=== PATIENT | female | born 1980 | race Caucasian/White ===

== ENCOUNTER 2018-09-30 12:28 | Emergency (ER) | payer OTHER ==
--- NOTE | 2018-09-30 13:55 | ED Physician Documentation ---
History of Present Illness - Stated complaint Stated Complaint: R LEG PX - Chief complaint Chief Complaint: General - History obtained from History obtained from: Patient, Family - History of Present Illness Timing: How many days ago (2) Pain level max: 6 Pain level now: 5 - Additonal information Additional information: 38-year-old female presents to the emergency department with right lower leg, heel and foot pain. Ongoing for the past couple of days. She teaches ballet and tap dancing. She also did a "bar workout" a few days ago. Worse with movement, better with rest. Has never had similar symptoms. No leg swelling. No recent travel. Not on hormone replacement. Does not smoke. No trauma Review of Systems Constitutional: denies: Fever, Chills Respiratory: denies: Cough GI: denies: Vomiting, Diarrhea Skin: denies: Rash Musculoskeletal: denies: Neck pain, Back pain Neurologic: denies: Headache PD PAST MEDICAL HISTORY - Past Medical History Past Medical History: No Cardiovascular: None Respiratory: None Neuro: None Endocrine/Autoimmune: None GI: None INSTRUMENTS SALES REPRESENTATIVE: None : None HEENT: None Psych: None Musculoskeletal: None Derm: None - Past Surgical History Past Surgical History: No - Present Medications Home Medications: Ambulatory Orders Medication Instructions Recorded Confirmed Ibuprofen [Motrin] 800 mg PO Q8H PRN #30 tablet 09/30/18 - Allergies Allergies/Adverse Reactions: Allergies Allergy/AdvReac Type Severity Reaction Status Date / Time No Known Drug Allergies Allergy Verified 09/30/18 12:40 - Social History Does the pt smoke?: No Smoking Status: Never smoker Does the pt drink ETOH?: No Does the pt have substance abuse?: No - Immunizations Immunizations are current?: Yes - POLST Patient has POLST: No PD ED PE NORMAL - Vitals Vital signs reviewed: Yes - General General: Alert and oriented X 3, No acute distress - HEENT HEENT: Moist mucous membranes - Neck Neck: Supple, no meningeal sign - Derm Derm: Warm and dry - Extremities Extremities: Other (Right lower extremity - Tender to palpation over the calcaneus. Also tender over the insertion of the Achilles and of the calf along the Achilles tendon. No calf tenderness or cord. No foot tenderness.) - Neuro Neuro: Alert and oriented X 3 Results - Vitals Vitals: Vital Signs - 24 hr 09/30/18 09/30/18 12:36 15:12 Temperature 36.5 C Heart Rate 111 H 93 Respiratory 14 16 Rate Blood Pressure 149/115 H 149/100 H O2 Saturation 99 99 Oxygen O2 Source Room air - Rads (name of study) Right calcaneus x-ray Radiology: Prelim report reviewed, EMP read contemporaneously, See rad report (No acute osseous abnormality of the calcaneus. 2. Mild prominence of the plantar soft tissues, which is nonspecific but can be seen in association with p lantar fasciitis.) R foot xray Radiology: Prelim report reviewed, EMP read contemporaneously, See rad report (No acute osseous or articular abnormality. 2. Mild spurring of the first metatarsal head, which may indicate mild DJD at the first MTP joint. 3. Mild prominence of the plantar soft tissues of the hindfoot, which can be seen with plantar fascitis. ) PD MEDICAL DECISION MAKING - ED course Complexity details: reviewed results, re-evaluated patient, considered differential, d/w patient, d/w family ED course: 38-year-old female presents to the emergency department with what appears to be an Achilles tendinitis and possibly plantar fasciitis. Placed in a walking boot for comfort. We will follow-up closely with her doctor. She understands that the walking boot is to be short-term only. Will likely need physical therapy as well. Patient counseled regarding signs and symptoms for which I believe and urgent re-evaluation would be necessary. Patient with good understanding of and agreement to plan and is comfortable going home at this time This document was made in part using voice recognition software. While efforts are made to proofread this document, sound alike and grammatical errors may occur. Departure - Departure Disposition: 01 Home, Self Care Clinical Impression: Achilles tendinitis of right lower extremity, Plantar fasciitis of right foot Condition: Good Instructions: ED Plantar Fasciitis Follow-Up: Provider,Other [Primary Care Provider] - Within 1 week Prescriptions: Ibuprofen [Motrin] 800 mg PO Q8H PRN #30 tablet PRN Reason: PAIN &/OR FEVER Comments: Do not wear the boot for longer than week. Follow-up with your doctor for further care. This may take 3 to 6 months to fully heal. You will likely benefit from ice, low impact exercise, anti-inflammatory medications and possibly physical therapy. Discharge Date/Time: 09/30/18 15:15
--- NOTE | 2018-09-30 14:30 | XRAY Report ---
Reason: R calcaneus pain, no injury Procedure Date: 09/30/2018 Accession Number: [id number] / [id number] Procedure: XR - Calcaneus RT CPT Code: FULL RESULT: EXAM: RIGHT CALCANEUS RADIOGRAPHY EXAM DATE: 09/30/2018 02:21 PM. CLINICAL HISTORY: Right calcaneus pain, no injury. COMPARISON: None. TECHNIQUE: 2 views. FINDINGS: Bones: No acute fracture or osseous lesion. Joints: No dislocation or subluxation. Soft Tissues: Prominence of the soft tissues along the plantar aspect of the hindfoot. Preservation of the retrocalcaneal fat pad. IMPRESSION: 1. No acute osseous abnormality of the calcaneus. 2. Mild prominence of the plantar soft tissues, which is nonspecific but can be seen in association with plantar fasciitis. [facility]
--- NOTE | 2018-09-30 14:31 | XRAY Report ---
Reason: R foot pain, no injury Procedure Date: 09/30/2018 Accession Number: [id number] / [id number] Procedure: XR - Foot 3 View RT CPT Code: FULL RESULT: EXAM: RIGHT FOOT RADIOGRAPHY EXAM DATE: 09/30/2018 02:21 PM. CLINICAL HISTORY: R foot pain, no injury. COMPARISON: None. TECHNIQUE: 3 views. FINDINGS: Bones: No acute fracture. There appears to be a tiny posterior calcaneal spur, seen only on oblique view. Joints: No dislocation or subluxation. There is minimal spurring along the lateral aspect of the first metatarsal head. Soft Tissues: Slight prominence of the plantar soft tissues overlying the hindfoot. IMPRESSION: 1. No acute osseous or articular abnormality. 2. Mild spurring of the first metatarsal head, which may indicate mild DJD at the first MTP joint. 3. Mild prominence of the plantar soft tissues of the hindfoot, which can be seen with plantar fascitis. [facility]
[2018-09-30 15:14] VITALS: BP 149/100
== END 2018-09-30 15:15 | disposition home or self-care (01) ==
LOC: ED 12:28
DX: M76.61 Achilles tendinitis, right leg (principal); M72.2 Plantar fascial fibromatosis
CPT/HCPCS: 99283